=== PATIENT | male | born 1990 ===

== ENCOUNTER 2018-11-15 16:48 | Emergency (ER) | payer SELFPAY ==
--- NOTE | 2018-11-15 16:49 | NUR ---
PT WAS TRANSPORTED BY [facility], PER EMS PT ELOPED BEFORE HE COULD BE BROUGHT INTO THE ER.
== END 2018-11-15 16:58 | disposition left against medical advice (07) ==
LOC: ER 16:49 → EDBD 16:49 → ER 16:58
DX: Z53.21 Procedure and treatment not carried out due to patient leaving prior to being seen by health care provider (principal)